=== PATIENT | female | born 1970 | race Caucasian/White ===

== ENCOUNTER 2024-03-12 08:40 | Outpatient (CLI) | payer OTHER | END 2024-03-12 08:41 | disposition home or self-care (01) | LOC: CSHULT 08:40 | PROVIDERS: ATTEND Internal Medicine Gastroenterology | DX: R11.10 Vomiting, unspecified (principal); K22.70 Barrett's esophagus without dysplasia; Z12.11 Encounter for screening for malignant neoplasm of colon; R10.13 Epigastric pain; R19.8 Other specified symptoms and signs involving the digestive system and abdomen | CPT/HCPCS: 76705 ==

== ENCOUNTER 2024-12-09 07:12 | Outpatient (CLI) | payer BC | END 2024-12-09 07:13 | disposition home or self-care (01) | LOC: CSHCT 07:12 | PROVIDERS: ATTEND Internal Medicine Gastroenterology | DX: R11.10 Vomiting, unspecified (principal); R10.9 Unspecified abdominal pain; N85.2 Hypertrophy of uterus; N89.9 Noninflammatory disorder of vagina, unspecified | CPT/HCPCS: 74177 ==